=== PATIENT | female | born 1970 | race African-American/Black ===

== ENCOUNTER 2017-09-09 11:12 | Emergency (ER) | payer MEDICAID ==
[~2017-09-09] VITALS: Ht 160 cm; Wt 139.7 kg
[~2017-09-09 11:12] MED LIST: CALC1CHW PO; CYCL1TAB18 PO; DICL-176 PO; DOCU1CAP31 PO; IBUP600T27 PO; LEVO50TA7 PO; LISI30TA36 PO; NITR-52 PO; RANI-185 PO; SIMV-8 PO
[2017-09-09 12:38] LABS: Basophils # (auto) 0 uL; Basophils % (auto) 0.3 % (0.0-2.0); Eosinophils # (auto) 0.1 uL; Hematocrit 41.1 % (36.0-46.0); Hemoglobin 13.7 g/dL (12.2-16.2); Lymphocytes # (auto) 1.7 uL; Mean Corpuscular Hemoglobin 30.5 pg (28.0-32.0); Mean Corpuscular Hgb Conc. 33.3 g/dL (32.0-36.0); Mean Corpuscular Volume 91.7 fL (80.0-100.0); Monocytes # (auto) 0.6 uL; Monocytes % (auto) 5.6 % (0.0-12.0); Neutrophils # (auto) 8.9 uL; Neutrophils % (auto) 78.1 % (37.0-80.0); Platelet Count (auto) 330 10^3/uL (140-450); Red Blood Cells 4.48 10^6/uL (4.0-5.20); Red Cell Distribution Width 15.9 % (11.8-14.3); White Blood Cell 11.4 10^3/uL (4.4-10.8)
[2017-09-09 12:56] LABS: Alanine Aminotransferase 23 U/L (13-56); Albumin 3.3 g/dL (3.4-5.0); Anion Gap 9 (5-15); Aspartate Aminotransferase 17 U/L (15-37); BUN/Creatinine Ratio 17.6; Blood Urea Nitrogen 15 mg/dL (7-18); Calcium 8.8 mg/dL (8.5-10.1); Carbon Dioxide 22 mmol/L (21-32); Chloride 107 mmol/L (98-107); GFR African American 93 mL/min; GFR Non-African American 77 mL/min; Glucose 83 mg/dL (74-106); Potassium 4.5 mmol/L (3.5-5.1); Sodium 138 mmol/L (136-145)
[2017-09-09 13:04] LABS: Alkaline Phosphatase 100 U/L (45-117); Bilirubin, Total 0.1 mg/dL (0.2-1.0); Total Protein 8.6 g/dL (6.4-8.2)
[2017-09-09 14:08] VITALS: BP 133/73
== END 2017-09-09 14:11 | disposition home or self-care (01) ==
LOC: ER 11:12
DX: R42 Dizziness and giddiness (principal); R30.0 Dysuria; I10 Essential (primary) hypertension; E78.5 Hyperlipidemia, unspecified; E07.9 Disorder of thyroid, unspecified; Z90.49 Acquired absence of other specified parts of digestive tract; Z79.899 Other long term (current) drug therapy; Z87.891 Personal history of nicotine dependence
CPT/HCPCS: 36415; 70450; 80053; 83735; 84484; 85025; 93005

== ENCOUNTER 2019-09-08 12:31 | Inpatient (IN) | payer MEDICAID ==
[~2019-09-08] VITALS: Ht 160 cm; Wt 160.6 kg
[~2019-09-08 12:31] MED LIST changes: -LISI30TA36 PO; +LISI30TA4 PO
[2019-09-08 14:30] LABS: Urine WBC None Seen /hpf (0 - 5)
[2019-09-08 14:56] LABS: Urine Bacteria NONE SEEN /hpf (None Seen); Urine Blood Negative /uL (Negative); Urine Specific Gravity 1.011 (1.001-1.035)
[2019-09-08 15:07] LABS: Albumin 3.4 g/dL (3.4-5.0); Calcium 8.9 mg/dL (8.5-10.1); Potassium 4.6 mmol/L (3.5-5.1)
[2019-09-08 15:09] LABS: Basophils # (auto) 0 uL; Basophils % (auto) 0.3 % (0.0-2.0); Eosinophils # (auto) 0.2 uL; Eosinophils % (auto) 1.6 % (0.0-7.0); Hemoglobin 12.2 g/dL (12.2-16.2); Lymphocytes # (auto) 1.8 uL; Mean Corpuscular Hemoglobin 26.3 pg (28.0-32.0); Monocytes # (auto) 0.7 uL; Red Cell Distribution Width 18.1 % (11.8-14.3)
[2019-09-08 15:11] LABS: Hematocrit 38.3 % (36.0-46.0); Lymphocytes % (auto) 18.3 % (10.0-50.0); Mean Corpuscular Volume 82.3 fL (80.0-100.0); Monocytes % (auto) 6.7 % (0.0-12.0); Neutrophils # (auto) 7.2 uL; Neutrophils % (auto) 73.1 % (37.0-80.0); Platelet Count (auto) 367 10^3/uL (140-450); Red Blood Cells 4.65 10^6/uL (4.0-5.20); White Blood Cell 9.8 10^3/uL (4.4-10.8)
[2019-09-08 15:12] LABS: Bilirubin, Total 0.3 mg/dL (0.2-1.0); Total Protein 8.4 g/dL (6.4-8.2)
[2019-09-08 17:10] LABS: Magnesium 1.8 mg/dL (1.6-2.6)
[2019-09-08] MEDS: SODIUM CHLORIDE 0.9% 1,000 ML IV SCH (21:38)
[2019-09-08] MEDS ORDERED: ACETAMINOPHEN 325 MG TAB PO PRN (21:45)
[2019-09-08] MEDS ORDERED: DEXTROSE (50%) 50ML SYRG IV PRN (21:45)
[2019-09-08] MEDS ORDERED: ONDANSETRON HCL 4 MG/2 ML VIAL IV PRN (21:45)
[2019-09-08] MEDS ORDERED: DOCUSATE SOD 100 MG CAP PO PRN (21:45)
[2019-09-08] MEDS ORDERED: HYDROcodone-ACET 10/325MG TAB PO ONE (22:00)
[2019-09-08 22:49] LABS: Alcohol, Urine < 3.0 mg/dL (0-5); Amphetamine Screen, Urine NEGATIVE (NEGATIVE); Barbiturate Scree,Urine NEGATIVE (NEGATIVE); Benzodiazephine Screen, Urine NEGATIVE (NEGATIVE); Cannabinoid Screen, Urine NEGATIVE (NEGATIVE); Cocaine Screen, Urine NEGATIVE (NEGATIVE); Opiate Scree,Urine NEGATIVE (NEGATIVE); Phencyclidine Screen, Urine NEGATIVE (NEGATIVE)
[2019-09-08 23:00] VITALS: BP 137/74
--- NOTE | 2019-09-08 23:00 | NUR ---
Telemetry admit from ER JAXSON LOVE admitted to Telemetry unit after SBAR received. Patient oriented to Fanny Westfall primary RN, unit, room, bed, and unit policies regarding patient care and visiting hours. Patient now on continuous telemetry monitoring, tele box # [id number] and telemetry reading on arrival to unit is SR 93. Patient weighed by bedscale and encouraged to call if they need something. All questions and concerns addressed, patient verbalized understanding. Patient currently requesting to sit up out bed on chair, on room air, no c/o cp, sob or any other discomfort, states " I jusr got a [place] in ER" ecchymosis noted to left face from fall, call light within reach, instructed to call for assist pt verbalized understanding, cont care
[2019-09-08] MEDS ORDERED: ATOR20TA PO (23:17)
[2019-09-08] MEDS ORDERED: METF-370 PO (23:17)
[2019-09-08] MEDS ORDERED: LORA-622 PO (23:17)
[2019-09-08 23:52] VITALS: BP 137/74
[2019-09-09] VITALS (9 sets, daily range): BP systolic 101–134; BP diastolic 60–102
[2019-09-09] MEDS: ACCU-CHEK COMFORT CURVE STRIP VI SCH ×4 (00:29→12:14)
[2019-09-09] MEDS: InsuLIN REG 1unit/0.01ml Soln (100units/ml) SC SCH ×4 (04:00→12:00)
[2019-09-09] MEDS: HYDROcodone-ACET 5/325MG TAB PO PRN ×2 (05:35→13:27)
[2019-09-09 06:56] LABS: Calcium 8.4 mg/dL (8.5-10.1); Potassium 4.2 mmol/L (3.5-5.1)
[2019-09-09 06:58] LABS: BUN/Creatinine Ratio 18.8
[2019-09-09 08:41] LABS: Basophils # (auto) 0.1 uL; Eosinophils # (auto) 0.1 uL; Hemoglobin 11.4 g/dL (12.2-16.2); Lymphocytes # (auto) 1.4 uL; Mean Corpuscular Volume 82.3 fL (80.0-100.0); Monocytes # (auto) 0.7 uL; Nucleated Red Blood Cells % 0.1 %
[2019-09-09 08:43] LABS: Eosinophils % (auto) 1.5 % (0.0-7.0); Hematocrit 34.7 % (36.0-46.0); Lymphocytes % (auto) 14.7 % (10.0-50.0); Mean Corpuscular Hemoglobin 27.1 pg (28.0-32.0); Mean Corpuscular Hgb Conc. 32.9 g/dL (32.0-36.0); Monocytes % (auto) 6.9 % (0.0-12.0); Neutrophils # (auto) 7.4 uL; Neutrophils % (auto) 75.9 % (37.0-80.0); Platelet Count (auto) 327 10^3/uL (140-450); Red Blood Cells 4.21 10^6/uL (4.0-5.20); Red Cell Distribution Width 17.7 % (11.8-14.3); White Blood Cell 9.7 10^3/uL (4.4-10.8)
[2019-09-09] MEDS: SODIUM CHLORIDE 0.9% 1,000 ML IV SCH (14:21)
--- NOTE | 2019-09-09 16:00 | NUR ---
ORTHOSTATIC VITAL SIGNS TAKEN AND DOCUMENTED
--- NOTE | 2019-09-09 18:05 | NUR ---
DISCHARGE NOTE PATIENT ALERT AND ORIENTED X4 ALL DISCHARGE INSTRUCTIONS GIVEN ALL QUESTIONS AND CONCERNS ADDRESSED/ANSWERED. PATIENT EXTENSIVELY EDUCATED ON DIABETES AND FOOD. PATIENT VERBALIZED UNDERSTANDING. IV REMOVED CATHETER INTACT PRESSURE DRESSING APPLIED PATIENT TOLERATED WELL. PATIENT DENIES ALL DISTRESS AND SOB OR DIZZYNESS. ASSISTED PATIENT TO PERSONAL VEHICLE USING WHEELCHAIR. TELE BOX REMOVED CLEANED AND SENT TO ICU. YARD LABORER NOTIFIED
== END 2019-09-09 18:05 | disposition home or self-care (01) | DRG 384 ==
LOC: ER 12:31 → TELE 12:32 → TELE-WESTW 22:59
PROVIDERS: ADMIT Hospitalist; ATTEND Internal Medicine
DX: S00.83XA Contusion of other part of head, initial encounter (principal); E11.649 Type 2 diabetes mellitus with hypoglycemia without coma; E66.01 Morbid (severe) obesity due to excess calories; E78.5 Hyperlipidemia, unspecified; E03.9 Hypothyroidism, unspecified; R42 Dizziness and giddiness; I10 Essential (primary) hypertension; W18.39XA Other fall on same level, initial encounter; S43.401A Unspecified sprain of right shoulder joint, initial encounter; Z87.891 Personal history of nicotine dependence; Z83.3 Family history of diabetes mellitus; Z82.49 Family history of ischemic heart disease and other diseases of the circulatory system; Z90.49 Acquired absence of other specified parts of digestive tract; Z68.44 Body mass index [BMI] 60.0-69.9, adult; Y93.89 Activity, other specified; Y92.89 Other specified places as the place of occurrence of the external cause; Y99.8 Other external cause status
CPT/HCPCS: 36415; 70450; 70486; 71045; 73030; 80048; 80053; 80061; 80307; 81001; 81025; 82962; 83036; 83735; 84443; 84484; 85025; 93005; 93306; 96360; G0378; J1815